=== PATIENT | male | born 1955 | race Caucasian/White ===

== ENCOUNTER 2021-09-08 00:55 | Emergency (ER) | payer MEDICARE, OTHER ==
[~2021-09-08 00:55] MED LIST: ALLEGRA ALLERG180 MG PO; ALLOPURINOL300 MG PO; ASCORBIC ACID500 MG PO; ASPIRIN EC81 MG PO; CERTAGEN1 EACH PO; CLARITIN10 MG PO; COQ-10100 MG PO; COREG 6.25MG6.25 MG PO; EZETIMIBE-SIMV1 EAC3 PO; MAGNESIUM/POTASSIUM PO; NEURONTIN100 MG PO; NORVASC5 MG PO; PEPCID AC20 MG PO; PLAVIX75 MG PO; REQUIP1 MG PO; TRAZODONE 50MG50 MG PO
[2021-09-08 01:30] LABS: BASOPHIL 0.6 % (0-2); EOSINOPHIL 1.4 % (0-7); HCT 43.5 % (42.0-52.0); HGB 14.6 g/dl (13.2-18.0); LYMPHOCYTE 39.3 % (15-48); MCH 30.4 pg (25.0-31.0); MCHC 33.6 g/dL (32.0-36.0); MCV 90.6 fL (78.0-100.0); MONOCYTE 6.5 % (0-12); MPV 11.8 fL (6.0-9.5); NEUTROPHIL 51.9 % (41-80); NRBC 0; PLT 169 K/uL (150-400); RDW 13.1 % (11.5-14.0); WBC 7.8 K/uL (4.0-10.5)
[2021-09-08 01:50] LABS: ALBUMIN 3.7 g/dL (3.4-5.0); BILIRUBIN - TOTAL 0.5 mg/dL (0.2-1.0); BUN/CREAT RATIO (CALC) 18.2 RATIO; CREATININE 0.88 mg/dL (0.67-1.17); FT4 (FREE T4) 0.9 ng/dL (0.76-1.46); MAGNESIUM 2.1 mg/dL (1.8-2.4); POTASSIUM 3.4 mmol/L (3.5-5.1); TOTAL PROTEIN 6.7 g/dL (6.4-8.2)
[2021-09-08 01:59] LABS: CORONAVIRUS 2019 SARS-COV-2 NEGATIVE (NEGATIVE); INFLUENZA A NAA NEGATIVE (NEGATIVE)
[2021-09-08] MEDS ORDERED: PERCOCET 5-3251 EACH PO (02:19)
[2021-09-08] MEDS ORDERED: ONDANSETRON ODT4 MG PO (02:19)
[2021-09-08] MEDS ORDERED: CARAFATE1 GM PO (02:19)
[2021-09-08] MEDS ORDERED: PHENERGAN25 M1 PO (02:19)
== END 2021-09-08 03:30 | disposition other institution (70) ==
LOC: FER 00:55
PROVIDERS: Internal Medicine
DX: I21.4 Non-ST elevation (NSTEMI) myocardial infarction (principal); I10 Essential (primary) hypertension; I25.2 Old myocardial infarction; I25.10 Atherosclerotic heart disease of native coronary artery without angina pectoris; Z88.0 Allergy status to penicillin; Z20.822 Contact with and (suspected) exposure to COVID-19
CPT/HCPCS: 36415; 71275; 80053; 83690; 83735; 83880; 84145; 84439; 84443; 84484; 85025; 85730; 93005; J1644; J2405; J3010; J7030; Q9967; U0002